=== PATIENT | female | born 1995 | race Caucasian/White ===

== ENCOUNTER 2021-06-09 20:08 | Day surgery (SDC) | payer BC ==
[2021-06-09 20:36] VITALS: BMI 41.0
[2021-06-09] MEDS ORDERED: Ondansetron PF 4 MG/2 ML Vial ONE (21:01)
[2021-06-09] MEDS: Lactated Ringer's 1,000 ML IV SCH ×2 (21:10→22:15)
[2021-06-09] MEDS ORDERED: Ondansetron ODT 4 MG TAB PO PRN (21:47)
[2021-06-09 22:10] LABS: SARS-CoV-2 NAA Rapid Test Not Detected (NotDetected)
[2021-06-09 23:41] LABS: Bilirubin Neg (Negative); Blood, Urine 10 (Negative); Clarity Slightly Cloudy (Clear); Glucose, Urine (Dipstick) Normal (Negative); Ketone, Urine 150 mg/dL (Negative); Leukocyte Negative (Negative); Nitrite Negative (Negative); Protein, Urine (Dipstick) 30 mg/dl (Neg-Trace)
[2021-06-09 23:56] LABS: Urine Culture Reflex No No
[2021-06-10 00:10] LABS: Bacteria/HPF None Seen HPF (None Seen); RBC/HPF 0-3 HPF (0-3)
[2021-06-10] MEDS: Lactated Ringer's 1,000 ML IV SCH (00:20)
== END 2021-06-10 01:45 | disposition home or self-care (01) ==
LOC: CSHLD/OP 20:08
PROVIDERS: ATTEND Obstetrics & Gynecology
DX: O47.03 False labor before 37 completed weeks of gestation, third trimester (principal); O23.593 Infection of other part of genital tract in pregnancy, third trimester; B96.89 Other specified bacterial agents as the cause of diseases classified elsewhere; O21.2 Late vomiting of pregnancy; Z3A.36 36 weeks gestation of pregnancy; Z79.82 Long term (current) use of aspirin; Z20.822 Contact with and (suspected) exposure to COVID-19
CPT/HCPCS: 0240U; 51701; 81001; 87480; 87510; 87660; 96360; 96361; 96375; 99285; J2405

== ENCOUNTER 2021-06-29 11:38 | Outpatient (CLI) | payer BC ==
[2021-06-30 11:36] LABS: SARS-CoV-2 PCR by NAA Not Detected (NotDetected)
== END 2021-06-29 11:39 | disposition home or self-care (01) ==
LOC: CSHLAB 11:38
PROVIDERS: ATTEND Obstetrics & Gynecology
DX: Z20.822 Contact with and (suspected) exposure to COVID-19 (principal)
CPT/HCPCS: U0003; U0005

== ENCOUNTER 2021-07-02 13:55 | Inpatient (IN) | payer BC ==
[2021-07-03] MEDS ORDERED: ePHEDrine Sulfate 50 MG/10 ML VIAL ONE (08:00)
[2021-07-03] MEDS ORDERED: Bupivacaine 0.25% HCL 30 ML VIAL ONE (08:00)
[2021-07-03] MEDS ORDERED: Penicillin G Potassium 5 MILL.UNITS in Sodium Chloride 0.9% 100 ML IVPB SCH (16:30)
[2021-07-03] MEDS ORDERED: Butorphanol Tartrate 1 MG/ML VIAL SLOW IVP PRN (20:01)
[2021-07-03] MEDS ORDERED: Promethazine HCl 25 MG/ML VIAL IM PRN (20:01)
[2021-07-03] MEDS ORDERED: Zolpidem Tartrate 5 MG TAB PO PRN (20:01)
[2021-07-03] MEDS ORDERED: HYDROcodone/Acetaminophen 5/325 mg Tablet PO PRN (20:01)
[2021-07-03] MEDS ORDERED: Ibuprofen 800 MG TAB PO PRN (20:01)
[2021-07-03] MEDS ORDERED: hydrALAZINE 20 MG/ML VIAL SLOW IVP PRN (20:01)
[2021-07-03] MEDS ORDERED: Lidocaine 1% (PF) 30 ML VIAL SC PRN (20:01)
[2021-07-03] MEDS ORDERED: Carboprost 250 MCG/ML AMP IM PRN (20:01)
[2021-07-03] MEDS ORDERED: Misoprostol 200 MCG TAB PR PRN (20:01)
[2021-07-03] MEDS ORDERED: Acetaminophen 500 MG TAB PO PRN (20:01)
[2021-07-03] MEDS ORDERED: Ondansetron PF 4 MG/2 ML Vial IVP PRN (20:01)
[2021-07-03 20:18] VITALS: BMI 42.3
[2021-07-03] MEDS ORDERED: NS w/ Oxytocin 30 units 500 ML IV SCH (20:30)
[2021-07-03] MEDS ORDERED: NS w/ Oxytocin 30 units 500 ML IVPB SCH (20:30)
[2021-07-03] MEDS: Lactated Ringer's 1,000 ML IV SCH (20:34)
[2021-07-03] MEDS: Misoprostol 100 MCG TAB VAG SCH (22:35)
[2021-07-03 22:43] LABS: Hemoglobin 10.6 g/dL (12.0-15.5); Mean Corpuscular Volume 87.7 fl (81.6-98.3); Mean Platelet Volume 9.5 fl (7.4-10.4); Platelet Count 170 10x3/uL (150-450); RBC Distribution Width 14.2 % (11.5-14.5); Red Blood Cell (RBC) Count 3.66 10x6/uL (3.90-5.03); White Blood Cell (WBC) Count 9.6 10x3/uL (3.5-10.5)
[2021-07-03 23:13] LABS: Hep B Surf Ag Non-Reactive S/CO (NonReactive); Syphilis Antibody Nonreactive (Nonreactive); Syphilis Antibody Index 0.04 S/CO (<1.00 Non-Reactive)
[2021-07-03 23:15] LABS: HBSAg Index 0.23 S/CO (0-0.99)
[2021-07-04] MEDS: Pen G 2.5 MILL.UNITS/50 ML BAG IVPB SCH ×3 (03:14→11:52)
[2021-07-04] MEDS ORDERED: Fentanyl 2 mcg/Bup 0.1% Cadd 100 ML ONE (10:19)
[2021-07-04] MEDS: Lactated Ringer's 1,000 ML IV SCH ×2 (10:30→11:49)
[2021-07-04] MEDS ORDERED: Ondansetron PF 4 MG/2 ML Vial IVP PRN (11:18)
[2021-07-04] MEDS ORDERED: Promethazine HCl 25 MG/ML VIAL IM PRN (11:18)
[2021-07-04] MEDS ORDERED: Lactated Ringer's 500 ML IV PRN (11:18)
[2021-07-04] MEDS ORDERED: diphenhydrAMINE 50 MG/ML VIAL IVP PRN (11:18)
[2021-07-04] MEDS ORDERED: Hydrocerin (Eucerin) Cream 120 gm Jar TOP PRN (11:18)
[2021-07-04] MEDS ORDERED: Acetaminophen 325 MG TAB PO PRN (11:18)
[2021-07-04] MEDS ORDERED: ePHEDrine Sulfate 50 MG/10 ML VIAL SLOW IVP PRN ×2 (11:18→12:32)
[2021-07-04] MEDS ORDERED: Naloxone HCl 0.4 mg/ml Vial IVP PRN ×2 (11:18)
[2021-07-04] MEDS ORDERED: Communication Order-Pharmacy FS SCH (11:30)
[2021-07-04] MEDS ORDERED: Fentanyl 2 mcg/Bupivacaine 0.1% Cassette 100 ML EPIDURAL SCH (12:00)
[2021-07-04] MEDS ORDERED: Milk Of Magnesia 30 ML UDCUP PO PRN (14:31)
[2021-07-04] MEDS ORDERED: Benzocaine-Menthol 82.5 ML CAN TOP PRN (14:31)
[2021-07-04] MEDS ORDERED: Preparation H Ointment 28 GM TUBE PR PRN (14:31)
[2021-07-04] MEDS ORDERED: hydrALAZINE 20 MG/ML VIAL SLOW IVP PRN (14:31)
[2021-07-04] MEDS ORDERED: Boostrix 0.5 ML (Tdap) VIAL IM ONE (14:31)
[2021-07-04] MEDS ORDERED: Bisacodyl 10 MG SUPP PR PRN (14:31)
[2021-07-04] MEDS: Misoprostol 100 MCG TAB VAG SCH (15:14)
[2021-07-04] MEDS ORDERED: traMADol HCl 50 MG TAB PO PRN (17:20)
[2021-07-04] MEDS: Ibuprofen 800 MG TAB PO SCH (20:59)
[2021-07-04] MEDS: Docusate Calcium (SURFAK) 240 MG CAP PO SCH (20:59)
[2021-07-05] MEDS: Ibuprofen 800 MG TAB PO SCH ×2 (05:13→13:41)
[2021-07-05] MEDS: Pen G 2.5 MILL.UNITS/50 ML BAG IVPB SCH (07:57)
[2021-07-05] MEDS: Misoprostol 100 MCG TAB VAG SCH (07:57)
[2021-07-05] MEDS: Docusate Calcium (SURFAK) 240 MG CAP PO SCH (08:39)
[2021-07-05] MEDS ORDERED: Prenatal Vitamin 1 TAB PO SCH (09:00)
[2021-07-05 15:54] VITALS: BP 109/55; TEMP 97.9
== END 2021-07-05 17:50 | disposition home or self-care (01) | DRG 807 ==
LOC: CSHLD 07-03 19:48 → CSHPP 07-04 17:30
PROVIDERS: ADMIT Obstetrics & Gynecology; ATTEND Obstetrics & Gynecology
PROC: 10E0XZZ Delivery of Products of Conception, External Approach (ICD-10-PCS; principal; 2021-07-04)
PROC: 10907ZC Drainage of Amniotic Fluid, Therapeutic from Products of Conception, Via Natural or Artificial Opening (ICD-10-PCS; 2021-07-04)
PROC: 3E0P7VZ Introduction of Hormone into Female Reproductive, Via Natural or Artificial Opening (ICD-10-PCS; 2021-07-04)
PROC: 3E033VJ Introduction of Other Hormone into Peripheral Vein, Percutaneous Approach (ICD-10-PCS; 2021-07-04)
PROC: 0HQ9XZZ Repair Perineum Skin, External Approach (ICD-10-PCS; 2021-07-04)
DX: O70.0 First degree perineal laceration during delivery (principal); Z37.0 Single live birth; Z3A.40 40 weeks gestation of pregnancy; Z20.822 Contact with and (suspected) exposure to COVID-19
CPT/HCPCS: 51702; 85027; 85461; 86780; 86850; 86900; 86901; 87340; 90384; 96372; J0595; J2540; J2590; J3490; J7120; S0020